=== PATIENT | male | born 1985 | race Caucasian/White ===

== ENCOUNTER 2019-06-30 | Emergency (ER) | payer OTHER ==
[2019-06-30] MEDS ORDERED: CYCLOBENZAPR5 MG PO (16:59)
== END 2019-06-30 17:27 | disposition home or self-care (01) | DRG 552 ==
DX: M54.2 Cervicalgia (principal); F17.290 Nicotine dependence, other tobacco product, uncomplicated

== ENCOUNTER 2020-02-23 09:33 | Emergency (ER) | payer OTHER ==
[~2020-02-23] VITALS: Ht 182.9 cm; Wt 85.0 kg
[~2020-02-23 09:33] MED LIST: CYCLOBENZAPR5 MG PO
[2020-02-23] MEDS ORDERED: CIPROFLOXACN500 MG PO (10:46)
[2020-02-23 10:50] VITALS: BP 116/80
== END 2020-02-23 10:50 | disposition home or self-care (01) | DRG 605 ==
LOC: ED 09:33
DX: S91.331A Puncture wound without foreign body, right foot, initial encounter (principal); W45.0XXA Nail entering through skin, initial encounter; Y92.009 Unspecified place in unspecified non-institutional (private) residence as the place of occurrence of the external cause

== ENCOUNTER 2020-06-30 09:14 | Emergency (ER) | payer OTHER ==
[~2020-06-30] VITALS: Ht 182.9 cm; Wt 80.0 kg
[~2020-06-30 09:14] MED LIST changes: +CIPROFLOXACN500 MG PO
[2020-06-30] MEDS ORDERED: FLEXERIL5 M1 PO (09:58)
[2020-06-30] MEDS ORDERED: DECADRON4 MG PO (11:09)
[2020-06-30 11:25] VITALS: BP 127/81
== END 2020-06-30 11:25 | disposition home or self-care (01) | DRG 552 ==
LOC: ED 09:14
DX: M54.2 Cervicalgia (principal); F17.200 Nicotine dependence, unspecified, uncomplicated

== ENCOUNTER 2020-11-22 11:56 | Emergency (ER) | payer OTHER ==
[~2020-11-22] VITALS: Ht 182.9 cm; Wt 83.6 kg
[~2020-11-22 11:56] MED LIST changes: +DECADRON4 MG PO; +FLEXERIL5 M1 PO
[2020-11-22 13:57] VITALS: BP 124/74
== END 2020-11-22 13:57 | disposition home or self-care (01) | DRG 563 ==
LOC: ED 11:56
DX: S63.502A Unspecified sprain of left wrist, initial encounter (principal); X50.0XXA Overexertion from strenuous movement or load, initial encounter; Y93.K9 Activity, other involving animal care; Y92.009 Unspecified place in unspecified non-institutional (private) residence as the place of occurrence of the external cause

== ENCOUNTER 2021-01-29 23:03 | Emergency (ER) | payer OTHER ==
[~2021-01-29] VITALS: Ht 182.9 cm; Wt 84.0 kg
[2021-01-30] MEDS ORDERED: ORPHENADRINE100 MG PO (00:28)
[2021-01-30] MEDS ORDERED: VOLTAREN75 MG PO (00:28)
[2021-01-30] MEDS ORDERED: LORTAB 5/3255 MG PO (00:28)
[2021-01-30 00:57] VITALS: BP 115/69
== END 2021-01-30 01:12 | disposition home or self-care (01) | DRG 552 ==
LOC: ED 23:03
DX: M54.16 Radiculopathy, lumbar region (principal); Z87.11 Personal history of peptic ulcer disease

== ENCOUNTER 2021-06-29 09:37 | Emergency (ER) | payer OTHER ==
[~2021-06-29] VITALS: Ht 175.3 cm; Wt 9.0 kg
[~2021-06-29 09:37] MED LIST changes: +LORTAB 5/3255 MG PO; +ORPHENADRINE100 MG PO; +VOLTAREN75 MG PO
[2021-06-29] MEDS ORDERED: ULTRAM50 MG PO (10:56)
[2021-06-29 11:05] VITALS: BP 128/79
== END 2021-06-29 11:05 | disposition home or self-care (01) | DRG 552 ==
LOC: ED 09:37
DX: M54.50 Low back pain, unspecified (principal); M54.2 Cervicalgia; G89.29 Other chronic pain; F17.200 Nicotine dependence, unspecified, uncomplicated